=== PATIENT | female | born 1945 | race Caucasian/White ===

== ENCOUNTER → 2023-11-27 14:28 | Outpatient (REF) | payer MEDICARE, SELFPAY | LOC: PAVMRI 14:28 | PROVIDERS: ATTENDING PHYSICIAN Pain Medicine Interventional Pain Medicine; FAMILY PHYSICIAN Internal Medicine; REFERRING PHYSICIAN Internal Medicine Endocrinology, Diabetes & Metabolism | DX: M54.16 Radiculopathy, lumbar region (principal); M54.12 Radiculopathy, cervical region | CPT/HCPCS: 72141; 72148 ==

== ENCOUNTER → 2024-02-21 06:50 | Outpatient (REF) | payer MEDICARE, SELFPAY ==
[2024-02-21 08:39] LABS: ALT (SGPT) 22 U/L (0-35); AST (SGOT) 32 U/L (14-36); Albumin 4.4 g/dl (3.5-5.0); Alkaline Phosphatase 57 U/L (38-126); Blood Urea Nitrogen 15 mg/dl (7-17); Calcium 9.9 mg/dl (8.4-10.2); Carbon Dioxide 27 mmol/L (22-30); Chloride 103 mmol/L (98-107); Glucose 90 mg/dl (70-99); Potassium 4.2 mmol/L (3.5-5.1); Sodium 138 mmol/L (135-145); Total Bilirubin 0.7 mg/dl (0.2-1.3); Total Protein 7.4 g/dl (6.3-8.2); eGFR > 60.00
[2024-02-21 08:56] LABS: Vitamin D, 25-OH*** 43.1 ng/mL (30-80)
== END ==
LOC: REG 06:50
PROVIDERS: ATTENDING PHYSICIAN Internal Medicine Endocrinology, Diabetes & Metabolism; FAMILY PHYSICIAN Internal Medicine
DX: M81.0 Age-related osteoporosis without current pathological fracture (principal); E55.9 Vitamin D deficiency, unspecified
CPT/HCPCS: 36415; 80053; 82306

== ENCOUNTER → 2024-03-13 08:07 | Outpatient (REF) | payer MEDICARE, SELFPAY | LOC: HWRAD 08:07 | PROVIDERS: ATTENDING PHYSICIAN Nurse Practitioner; FAMILY PHYSICIAN Internal Medicine; REFERRING PHYSICIAN Internal Medicine Endocrinology, Diabetes & Metabolism | DX: Z12.31 Encounter for screening mammogram for malignant neoplasm of breast (principal); M81.0 Age-related osteoporosis without current pathological fracture; S32.010A Wedge compression fracture of first lumbar vertebra, initial encounter for closed fracture | CPT/HCPCS: 77063; 77067; 77080 ==

== ENCOUNTER → 2024-03-25 06:51 | Outpatient (REF) | payer MEDICARE, SELFPAY ==
[2024-03-25 08:22] LABS: % Eosinophils 1.9 % (0-6); % Immature Granulocytes 0.2 % (0-0.5); % Lymphocytes 39.5 % (20.5-51.1); % Neutrophils 48.4 % (42.2-75.2); Absolute Eosinophils 0.1 10^3/uL (0-0.7); Absolute Lymphocytes 1.6 10^3/uL (1.2-3.4); Absolute Monocytes 0.4 10^3/uL (0.1-0.6); Hematocrit 39.5 % (37.0-47.0); Hemoglobin 13.7 g/dL (12.0-16.0); Mean Corp Hgb Conc. 34.7 g/dL (33.0-37.0); Mean Corpuscular Hgb 32.8 pg (27.0-31.0); Mean Corpuscular Volume 94.5 fL (81.0-99.0); Mean Platelet Volume 9.4 fL (7.4-10.4); Nucleated Red Blood Cells % 0 %; Platelet Count 210 10^3/uL (130-400); Red Blood Cell Count 4.18 10^6/uL (4.20-5.40); Red Cell Dist. Width 12.1 % (11.5-14.5); White Blood Cell Count 4.1 10^3/uL (4.8-10.8)
[2024-03-25 09:45] LABS: HDL Cholesterol 72 mg/dl; LDL Cholesterol, Calculated 130 mg/dl; Total Cholesterol 225 mg/dl (50-199); Triglyceride 119 mg/dl (10-149); Very Low Density Lipoprotein 23 mg/dl (0-30)
== END ==
LOC: REG 06:51
PROVIDERS: ATTENDING PHYSICIAN Nurse Practitioner; FAMILY PHYSICIAN Internal Medicine Endocrinology, Diabetes & Metabolism
DX: Z00.00 Encounter for general adult medical examination without abnormal findings (principal); I10 Essential (primary) hypertension; K21.9 Gastro-esophageal reflux disease without esophagitis; R26.9 Unspecified abnormalities of gait and mobility
CPT/HCPCS: 36415; 80061; 84443; 85025

== ENCOUNTER → 2024-05-04 10:28 | Outpatient (REF) | payer MEDICARE, SELFPAY | LOC: RAD 10:28 | PROVIDERS: ATTENDING PHYSICIAN Obstetrics & Gynecology Gynecology; FAMILY PHYSICIAN Internal Medicine | DX: R93.89 Abnormal findings on diagnostic imaging of other specified body structures (principal) | CPT/HCPCS: 76830; 76856 ==

== ENCOUNTER → 2024-05-14 13:43 | Outpatient (REF) | payer MEDICARE, SELFPAY | LOC: PAVMRI 13:43 | PROVIDERS: ATTENDING PHYSICIAN Psychiatry & Neurology Neurology; FAMILY PHYSICIAN Internal Medicine | DX: E23.6 Other disorders of pituitary gland (principal); G43.109 Migraine with aura, not intractable, without status migrainosus; R42 Dizziness and giddiness | CPT/HCPCS: 70544; 70549; 70553; A9585 ==

== ENCOUNTER → 2024-07-10 09:05 | Outpatient (REF) | payer MEDICARE, SELFPAY | LOC: HWRAD 09:05 | PROVIDERS: ATTENDING PHYSICIAN Nurse Practitioner | DX: I70.0 Atherosclerosis of aorta (principal) | CPT/HCPCS: 76770 ==

== ENCOUNTER → 2024-11-02 07:08 | Outpatient (REF) | payer MEDICARE, SELFPAY ==
[2024-11-02 08:36] LABS: % Basophils 0.8 % (0-2); % Eosinophils 1.8 % (0-6); % Immature Granulocytes 0.3 % (0-0.5); % Lymphocytes 42.1 % (20.5-51.1); % Monocytes 10.3 % (1.7-9.3); % Neutrophils 44.7 % (42.2-75.2); Absolute Eosinophils 0.1 10^3/uL (0-0.7); Absolute Lymphocytes 1.6 10^3/uL (1.2-3.4); Absolute Monocytes 0.4 10^3/uL (0.1-0.6); Absolute Neutrophils 1.7 10^3/uL (1.4-6.5); Hematocrit 42.2 % (37.0-47.0); Hemoglobin 14.7 g/dL (12.0-16.0); Mean Corp Hgb Conc. 34.8 g/dL (33.0-37.0); Mean Corpuscular Hgb 32.7 pg (27.0-31.0); Mean Platelet Volume 9.6 fL (7.4-10.4); Nucleated Red Blood Cells % 0 %; Platelet Count 203 10^3/uL (130-400); Red Blood Cell Count 4.49 10^6/uL (4.20-5.40); Red Cell Dist. Width 11.9 % (11.5-14.5); White Blood Cell Count 3.8 10^3/uL (4.8-10.8)
[2024-11-02 09:31] LABS: ALT (SGPT) 19 U/L (0-35); AST (SGOT) 30 U/L (14-36); Albumin 4.6 g/dl (3.5-5.0); Alkaline Phosphatase 49 U/L (38-126); Blood Urea Nitrogen 15 mg/dl (7-17); Calcium 9.7 mg/dl (8.4-10.2); Carbon Dioxide 29 mmol/L (22-30); Chloride 99 mmol/L (98-107); Glucose 88 mg/dl (70-99); HDL Cholesterol 68 mg/dl; LDL Cholesterol, Calculated 128 mg/dl; Potassium 4.4 mmol/L (3.5-5.1); Sodium 136 mmol/L (135-145); Total Bilirubin 0.7 mg/dl (0.2-1.3); Total Cholesterol 220 mg/dl (50-199); Total Protein 7.4 g/dl (6.3-8.2); Triglyceride 124 mg/dl (10-149); Very Low Density Lipoprotein 24 mg/dl (0-30); eGFR > 60.00
== END ==
LOC: REG 07:08
PROVIDERS: ATTENDING PHYSICIAN Nurse Practitioner
DX: R21 Rash and other nonspecific skin eruption (principal); R53.82 Chronic fatigue, unspecified; R26.9 Unspecified abnormalities of gait and mobility; Z00.00 Encounter for general adult medical examination without abnormal findings; E78.5 Hyperlipidemia, unspecified
CPT/HCPCS: 36415; 80053; 80061; 84443; 85025

== ENCOUNTER 2024-12-05 15:32 | Emergency (ER) | payer MEDICARE, SELFPAY ==
[2024-12-05 15:38] VITALS: BP 143/91
[2024-12-05 15:45] VITALS: BMI 30.4
[2024-12-05 16:00] VITALS: BP 135/79
--- NOTE | 2024-12-05 16:42 | ED.GENMED ---
History of Present Illness
General
Chief Complaint: Fall
Source: patient
Time Seen by Provider: 12/05/24 16:09
History of Present Illness
History of Present Illness:
79-year-old female presents to the emergency room complaining of pain to her right wrist as well as her left ankle. Patient was sitting in a chair for some period of time when she got up to walk into the kitchen. She fell after twisting her left
ankle. She fell to her right side and landed on her extended right arm and now has pain and swelling of the right wrist. She denies striking her head. She does not take any oral anticoagulants.
Past History
Past History
ED Past Medical History: Hypercholesterolemia
ED Past Surgical History: Orthopedic (Total knee bunionectomy); Negative Cardiac
Social History
Tobacco: Non-smoker
Alcohol: Daily
Drug: None
Personal:
Living: with family
Employment: Retired
Family History
Family History: Other (Noncontributory)
Phy Exam
Physical Exam
Physical Exam:
General: Awake, Alert, Oriented X3. No acute distress.
Vitals: unremarkable
Head: Atraumatic
Eyes: Pupils equal, EOMI
Throat: Airway intact, no exudates
Neck: Trachea midline
Lungs: Clear and equal b/l
Heart: Regular rate, no murmurs
Abd: Soft, Nontender, No pulsatile mass
Neuro: Nonfocal
Skin: Warm, dry, no rash
Extremities: pulses equal b/l, deformity and tenderness over the right wrist. No tenderness to palpation over the proximal forearm, elbow or shoulder. Left leg reveals swelling particular over the lateral malleolus. There is tenderness to
palpation over the lateral malleolus. There is no pain with compression of the lower leg itself. No knee effusion or tenderness.
Course
Orders/Labs/Results
Orders:
Orders
12/05/24 16:40
Acetaminophen [Tylenol] 1,000 mg PO NOW STA
Ibuprofen [Motrin] 400 mg PO NOW STA
Ankle, left 3 view CR [CR Ankle - Left Min 3 Views ] Urgent
Comment:
Reason For Exam: pain, swelling after fall
Wrist, Right 3 Views [CR Wrist - Right Min 3 Views] Urgent
Comment:
Reason For Exam: pain/deformity after fall
12/05/24 20:03
Wrist, Right 2 Views CR [CR Wrist - Right Min 2 Views] Urgent
Comment:
Reason For Exam: post reduction
12/05/24 20:59
Ortho Boot Left- Treatment ONCE
Short or tall?: Short
Vital Signs
Initial and Last Documented VS:
Initial Vital Signs
Temp Pulse Resp BP Pulse Ox
97.9 F 82 14 143/91 99
12/05/24 15:38 12/05/24 15:38 12/05/24 15:38 12/05/24 15:38 12/05/24 15:38
Last Documented Vital Signs
Temp Pulse Resp BP Pulse Ox
97.9 F 82 14 175/127 98
12/05/24 15:38 12/05/24 15:38 12/05/24 15:38 12/05/24 20:00 12/05/24 20:30
Procedures
Joint/Fracture Reduction
Right Wrist:
Indication for procedure:: Comminuted and angulated distal radius fracture
Procedure completed by: Myself
Consent form signed: No
Anesthesia/sedation: Other (Hematoma block)
Injury was: closed
Further treatement: needs further treatment (Follow-up with orthopedics as an outpatient)
Post reduction exam: stable
Capillary Refill: normal
Peripheral Pulses: radial (left): 3+ and radial (right): 3+
MDM/Problems Addressed
Differential Diagnosis Includes:
Distal radius fracture, distal fibular fracture, sprain. contusion
MDM/Problems Addressed:
Patient presents after a fall where she inverted her left ankle and then fell on her outstretched right arm. She does have a nondisplaced fracture of the distal fibula. Patient placed in a walking boot. Weight-bear as tolerated. X-rays of her
wrist show a comminuted fracture of the distal radius which does involve the articular surface. Hematoma block was administered and the fracture reduced as best as possible here in the emergency room. She is placed in a sugar-tong splint.
Communicated with Dr. More. Fracture is suitable for outpatient follow-up. They should be able to see the patient within a week. After the patient's wrist was splinted and she was placed in a boot we ambulated her. She did well and is
anxious to be discharged home.
*Radiology
Radiology exam reviewed: preliminary read by ED provider (Comminuted fracture distal radius with some dorsal angulation) and radiology read reviewed
*Pulse Oximetry
Patient hypoxic: no
*Critical Care Note
Total Time (30-74mins, 75-104mins- exclusive of procedures): Not Applicable
ED Attending Note
-
Portions of this chart may have been created with voice recognition software.� Occasional wrong word or��sound alike� substitutions may have occurred due to the inherent limitations of voice recognition software.
Discharge Plan
Departure
Patient Disposition: Home (Routine Discharge)
Date of Disposition: 12/05/24
Time of Disposition: 21:28
Patient with high blood pressure during this ER visit?: Yes
Condition: Good
Discharge Problem:
Fracture of right wrist, Fracture of lateral malleolus
Instructions: Ankle Fracture ED, BLOOD PRESSURE, Wrist Fracture
Prescriptions:
No Action
omeprazole 20 MG capsule,delayed release(DR/EC)
20 mg PO DAILY
clobetasol-emollient 15 GM cream
1 applic topical BID
clobetasol-emollient 15 GM cream
1 applic TP DAILYPRN PRN (Reason: r Ear eczema)
sennosides [senna] 1 TABLET tablet
2 tab PO BID 0RF
acetaminophen 325 MG tablet
650 mg PO Q4HPRN PRN (Reason: headache, temp >101F) 0RF
lisinopril 20 MG tablet
20 mg PO DAILY 0RF
aspirin 81 MG tablet,delayed release (DR/EC)
81 mg PO BID Qty: 0 0RF
docusate sodium 100 MG capsule
100 mg PO BID 0RF
oxycodone 5 MG tablet
5 mg PO Q4HPRN PRN (Reason: mod pain) Qty: 4 0RF
Referrals:
Jose E Guardado MD [Family Provider] -
Rolly More MD [Active] -
Interventions
Interventions:
*Risk Screen - Suicide Last Done: 12/05/24 15:51
*General Assessment Last Done: 12/05/24 15:51
*Neglect/Abuse Screening Last Done: 12/05/24 15:51
*ED- Fall Risk Assessment Last Done: 12/05/24 15:51
*ED COVID-19 Vaccine History Last Done: 12/05/24 15:45
*Nursing Disposition Last Done: 12/05/24 21:47
ED-Musculoskeletal Assessment Last Done: 12/05/24 15:51
ED- Neurological Assessment Last Done: 12/05/24 15:51
ED-Skin Assessment Last Done: 12/05/24 15:51
Discharge Date and Time
Discharge Date/Time: 12/05/24 21:48
Print Language: [place]
[2024-12-05 17:00] VITALS: BP 126/80
[2024-12-05] MEDS: TYLENOL 1000 MG PO (17:00)
[2024-12-05 18:00] VITALS: BP 134/84
[2024-12-05 19:01] VITALS: BP 138/85
[2024-12-05 20:00] VITALS: BP 175/127
== END 2024-12-05 21:48 | disposition home or self-care (01) ==
LOC: EMR 15:32
PROVIDERS: EMERGENCY PHYSICIAN Emergency Medicine; FAMILY PHYSICIAN Internal Medicine
DX: S82.62XA Displaced fracture of lateral malleolus of left fibula, initial encounter for closed fracture (principal); S52.571A Other intraarticular fracture of lower end of right radius, initial encounter for closed fracture; W19.XXXA Unspecified fall, initial encounter; E78.00 Pure hypercholesterolemia, unspecified; R03.0 Elevated blood-pressure reading, without diagnosis of hypertension; Z79.82 Long term (current) use of aspirin; Z88.2 Allergy status to sulfonamides; Z88.8 Allergy status to other drugs, medicaments and biological substances; Z88.1 Allergy status to other antibiotic agents; Z91.040 Latex allergy status
CPT/HCPCS: 25605; 99284; 29515; 73100; 73110; 73610

== ENCOUNTER → 2025-03-15 10:46 | Outpatient (REF) | payer MEDICARE, SELFPAY ==
[2025-03-15 07:29] LABS: Hematocrit 40.1 % (37.0-47.0); Hemoglobin 13.7 g/dL (12.0-16.0); Mean Corp Hgb Conc. 34.2 g/dL (33.0-37.0); Mean Corpuscular Volume 93.7 fL (81.0-99.0); Mean Platelet Volume 9.3 fL (7.4-10.4); Platelet Count 175 10^3/uL (130-400); Red Blood Cell Count 4.28 10^6/uL (4.20-5.40); White Blood Cell Count 3.1 10^3/uL (4.8-10.8)
[2025-03-15 07:51] LABS: ALT (SGPT) 22 U/L (0-35); AST (SGOT) 32 U/L (14-36); Albumin 4.5 g/dl (3.5-5.0); Alkaline Phosphatase 52 U/L (38-126); Blood Urea Nitrogen 14 mg/dl (7-17); Calcium 9.7 mg/dl (8.4-10.2); Carbon Dioxide 27 mmol/L (22-30); Chloride 104 mmol/L (98-107); Glucose 91 mg/dl (70-99); HDL Cholesterol 58 mg/dl; LDL Cholesterol, Calculated 87 mg/dl; Potassium 4.1 mmol/L (3.5-5.1); Sodium 138 mmol/L (135-145); Total Bilirubin 0.5 mg/dl (0.2-1.3); Total Cholesterol 167 mg/dl (50-199); Total Protein 7.2 g/dl (6.3-8.2); Triglyceride 113 mg/dl (10-149); Very Low Density Lipoprotein 22 mg/dl (0-30); eGFR > 60.00
[2025-03-15 08:16] LABS: TSH 1.77 uIU/ml (0.47-4.68)
[2025-03-15 08:21] LABS: % Basophils 0.7 % (0-2); % Lymphocytes 51.3 % (20.5-51.1); % Monocytes 10.8 % (1.7-9.3); % Neutrophils 35.2 % (42.2-75.2); Absolute Eosinophils 0.1 10^3/uL (0-0.7); Absolute Lymphocytes 1.6 10^3/uL (1.2-3.4); Absolute Monocytes 0.3 10^3/uL (0.1-0.6); Absolute Neutrophils 1.1 10^3/uL (1.4-6.5); Nucleated Red Blood Cells % 0 %
== END ==
LOC: HWWDC 10:46
PROVIDERS: ATTENDING PHYSICIAN Obstetrics & Gynecology Gynecology; FAMILY PHYSICIAN Nurse Practitioner; REFERRING PHYSICIAN Internal Medicine Endocrinology, Diabetes & Metabolism
DX: Z12.31 Encounter for screening mammogram for malignant neoplasm of breast (principal)
CPT/HCPCS: 36415; 77063; 77067; 80053; 80061; 84443; 85025

== ENCOUNTER → 2025-08-26 13:58 | Outpatient (REF) | payer MEDICARE, SELFPAY | LOC: RAD 13:58 | PROVIDERS: ATTENDING PHYSICIAN Nurse Practitioner | DX: M79.604 Pain in right leg (principal) | CPT/HCPCS: 93971 ==